=== PATIENT | male | born 1960 | race Caucasian/White ===

== ENCOUNTER 2017-06-21 10:03 | Inpatient (IN) | payer OTHER ==
--- NOTE | 2017-06-21 10:41 | EDM.PDOC ---
ED HPI GENERAL MEDICAL PROBLEM - General Chief Complaint: Fever Stated Complaint: CANCER Time Seen by Provider: 06/21/17 10:33 Source of Information: Reports: Patient History Limitations: Reports: No Limitations - History of Present Illness INITIAL COMMENTS - FREE TEXT/NARRATIVE: pt arrived with a history of spiking a fever last nite with shaking chills. He had a klebsella infection the end of May shortly after his bladder was removed. He has a history of ca of the bladder. He did have several bowel obstructions after he had his bladder removed none of which required surgery. Onset: Other (last nite he developed the shaking chills. ) Duration: Hour(s):, Getting Worse Location: Reports: Generalized Associated Symptoms: Reports: Diaphoresis, Fever/Chills, Weakness - Related Data Allergies Allergy/AdvReac Type Severity Reaction Status Date / Time erythromycin base Allergy Rash Verified 06/21/17 10:10 Home Meds: Home Meds Ibuprofen [Motrin] 200 mg PO Q6H PRN 06/21/17 [History] Past Medical History - Past Health History Medical/Surgical History: Denies Medical/Surgical History Gastrointestinal History: Reports: Bowel Obstruction Other Genitourinary History: bladder c/a with reconstructive surg. Oncologic (Cancer) History: Reports: Bladder - Infectious Disease History Infectious Disease History: Reports: Chicken Pox Other Infectious Disease History: recent klebsiella - Past Surgical History Male Surgical History: Reports: Prostatectomy Musculoskeletal Surgical History: Reports: Arthroscopic Knee Oncologic Surgical History: Reports: Other (See Below) Other Oncologic Surgeries/Procedures: bladder reconstruction Social & Family History - Tobacco Use Smoking Status *Q: Never Smoker - Recreational Drug Use Recreational Drug Use: No ED ROS GENERAL - Review of Systems Review Of Systems: See Below Constitutional: Reports: Fever, Chills HEENT: Reports: No Symptoms Respiratory: Reports: No Symptoms Cardiovascular: Reports: No Symptoms Endocrine: Reports: No Symptoms GI/Abdominal: Reports: No Symptoms : Reports: Other ( history of urinary tract infections. ) Musculoskeletal: Reports: No Symptoms Skin: Reports: No Symptoms Neurological: Reports: No Symptoms Psychiatric: Reports: No Symptoms ED EXAM, SEPSIS - Physical Exam Exam: See Below Text/Narrative:: Pt arrived with a fever and shaking chills. He has a history of a klebsella infection following the removal of his bladder. Exam Limited By: No Limitations General Appearance: Alert, Anxious, Mild Distress Ears: Normal TMs Nose: Normal Inspection Throat/Mouth: Normal Inspection Head: Atraumatic Neck: Normal Inspection Respiratory/Chest: No Respiratory Distress Cardiovascular: Regular Rate, Rhythm GI/Abdominal Exam: Soft, Other (mild supra pupic tenderness. ) (Male) Exam: Deferred Rectal (Males) Exam: Deferred Back: Normal Inspection Extremities: Normal Inspection Neurological: Alert, Oriented, Normal Gait Psychiatric: Normal Affect Course - Vital Signs Last Recorded V/S: Last Vital Signs Temp 37.4 C 06/22/17 07:13 Pulse 99 06/22/17 07:13 Resp 16 06/22/17 07:13 BP 118/60 06/22/17 07:13 Pulse Ox 95 06/22/17 07:13 - Orders/Labs/Meds Orders: Active Orders 24 hr Category Date Time Status Abdomen Pelvis w Cont [CT] Stat Exams 06/21/17 11:20 Taken Chest 1V Frontal [CR] Stat Exams 06/21/17 10:51 Taken CULTURE BLOOD [BC] Urgent Lab 06/21/17 10:35 Received CULTURE BLOOD [BC] Urgent Lab 06/21/17 10:40 Received CULTURE URINE [RM] Stat Lab 06/21/17 13:10 Results Blood Culture x2 Reflex Set [OM.PC] Urgent Oth 06/21/17 10:31 Ordered Medication Orders Acetaminophen (Tylenol) 650 mg PO Q4H PRN PRN Reason: Pain (Mild 1-3)/fever Last Admin: 06/21/17 21:48 Dose: 650 mg Admin: 06/21/17 14:57 Dose: 650 mg Docusate Sodium (Colace) 100 mg PO BID PRN PRN Reason: Constipation Enoxaparin Sodium (Lovenox) 40 mg SUBCUT Q24H [facility] Last Admin: 06/21/17 14:02 Dose: 40 mg Meropenem 1 gm/ Sodium (Chloride) 100 mls @ 200 mls/hr IV Q8H [facility] Last Admin: 06/22/17 05:22 Dose: 200 mls/hr Infusion: 06/21/17 22:11 Dose: 200 mls/hr Admin: 06/21/17 21:41 Dose: 200 mls/hr Infusion: 06/21/17 13:53 Dose: 200 mls/hr Admin: 06/21/17 13:23 Dose: 200 mls/hr Sodium Chloride (Normal Saline) 1,000 mls @ 125 mls/hr IV ASDIRECTED [facility] Last Admin: 06/21/17 21:49 Dose: 125 mls/hr Infusion: 06/21/17 21:24 Dose: 125 mls/hr Admin: 06/21/17 13:24 Dose: 125 mls/hr Vancomycin HCl 1.25 gm/ Sodium (Chloride) 250 mls @ 167 mls/hr IV Q12H [facility] Last Admin: 06/22/17 01:58 Dose: 167 mls/hr Ibuprofen (Motrin) 400 mg PO Q6H PRN PRN Reason: Pain/Fever Last Admin: 06/22/17 02:10 Dose: 400 mg Admin: 06/21/17 17:30 Dose: 400 mg Magnesium Hydroxide (Milk Of Magnesia) 30 ml PO Q12H PRN PRN Reason: Constipation Ondansetron HCl (Zofran) 4 mg IV Q4H PRN PRN Reason: Nausea/Vomiting Oxycodone HCl (Oxycodone) 5 mg PO Q4H PRN PRN Reason: Pain (moderate 4-6) Polyethylene Glycol (Miralax) 17 gm PO DAILY PRN PRN Reason: Constipation Sodium Chloride (Saline Flush) 10 ml FLUSH ASDIRECTED PRN PRN Reason: Keep Vein Open Labs: Laboratory Tests 06/21/17 06/21/17 06/21/17 Range/Units 10:35 10:35 10:35 WBC 11.2 H (4.5-11.0) K/uL RBC 3.44 L (4.30-5.90) M/uL Hgb 10.3 L (12.0-15.0) g/dL Hct 30.7 L (40.0-54.0) % MCV 89 (80-98) fL MCH 30 (27-31) pg MCHC 34 (32-36) % Plt Count 343 (150-400) K/uL Neut % (Auto) 85 H (36-66) % Lymph % (Auto) 8 L (24-44) % [place] % (Auto) 7 H (2-6) % Eos % (Auto) 0 L (2-4) % Baso % (Auto) 0 (0-1) % VBG pH (7.350-7.450) Sodium 132 L (140-148) mmol/L Potassium 3.4 L (3.6-5.2) mmol/L Chloride 101 (100-108) mmol/L Carbon Dioxide 17 L (21-32) mmol/L Anion Gap 17.4 H (5.0-14.0) mmol/L BUN 30 H (7-18) mg/dL Creatinine 1.3 (0.8-1.3) mg/dL Est Cr Clr Drug Dosing 70.47 mL/min Estimated GFR (MDRD) 57 L (>60) Glucose 126 H (74-106) mg/dL Lactic Acid (0.4-2.0) mmol/L Calcium 8.7 (8.5-10.1) mg/dL Total Bilirubin 0.3 (0.2-1.0) mg/dL AST 18 (15-37) U/L ALT 31 (12-78) U/L Alkaline Phosphatase 78 (46-116) U/L C-Reactive Protein 3.25 H (0.0-0.3) mg/dL Total Protein 8.3 H (6.4-8.2) g/dL Albumin 3.4 (3.4-5.0) g/dL Globulin 4.9 H (2.3-3.5) g/dL Albumin/Globulin Ratio 0.7 L (1.2-2.2) Urine Color Urine Appearance Urine pH (4.5-8.0) Ur Specific [place] (1.008-1.030) Urine Protein (NEGATIVE) mg/dL Urine Glucose (UA) (NEGATIVE) mg/dL Urine Ketones (NEGATIVE) mg/dL Urine Occult Blood (NEGATIVE) Urine Nitrite (NEGAITVE) Urine Bilirubin (NEGATIVE) Urine Urobilinogen (NORMAL) mg/dL Ur Leukocyte Esterase (NEGATIVE) Urine RBC (0-5) Urine WBC (0-5) Ur Epithelial Cells Amorphous Sediment Urine Bacteria Urine Mucus 06/21/17 06/21/17 06/21/17 Range/Units 10:35 10:52 12:25 WBC (4.5-11.0) K/uL RBC (4.30-5.90) M/uL Hgb (12.0-15.0) g/dL Hct (40.0-54.0) % MCV (80-98) fL MCH (27-31) pg MCHC (32-36) % Plt Count (150-400) K/uL Neut % (Auto) (36-66) % Lymph % (Auto) (24-44) % [place] % (Auto) (2-6) % Eos % (Auto) (2-4) % Baso % (Auto) (0-1) % VBG pH 7.426 (7.350-7.450) Sodium (140-148) mmol/L Potassium (3.6-5.2) mmol/L Chloride (100-108) mmol/L Carbon Dioxide (21-32) mmol/L Anion Gap (5.0-14.0) mmol/L BUN (7-18) mg/dL Creatinine (0.8-1.3) mg/dL Est Cr Clr Drug Dosing mL/min Estimated GFR (MDRD) (>60) Glucose (74-106) mg/dL Lactic Acid 1.3 (0.4-2.0) mmol/L Calcium (8.5-10.1) mg/dL Total Bilirubin (0.2-1.0) mg/dL AST (15-37) U/L ALT (12-78) U/L Alkaline Phosphatase (46-116) U/L C-Reactive Protein (0.0-0.3) mg/dL Total Protein (6.4-8.2) g/dL Albumin (3.4-5.0) g/dL Globulin (2.3-3.5) g/dL Albumin/Globulin Ratio (1.2-2.2) Urine Color Yellow Urine Appearance Cloudy Urine pH 6.0 (4.5-8.0) Ur Specific [place] 1.010 (1.008-1.030) Urine Protein Trace (NEGATIVE) mg/dL Urine Glucose (UA) Normal (NEGATIVE) mg/dL Urine Ketones Negative (NEGATIVE) mg/dL Urine Occult Blood Large (NEGATIVE) Urine Nitrite Positive H (NEGAITVE) Urine Bilirubin Negative (NEGATIVE) Urine Urobilinogen Normal (NORMAL) mg/dL Ur Leukocyte Esterase Large (NEGATIVE) Urine RBC 20-30 H (0-5) Urine WBC 10-20 H (0-5) Ur Epithelial Cells Not seen Amorphous Sediment Not seen Urine Bacteria Many Urine Mucus Not seen Meds: Medications Generic Name Dose Route Start Last Admin Trade Name Freq PRN Reason Stop Dose Admin Acetaminophen 650 mg 06/21/17 13:05 06/21/17 21:48 Tylenol PO 650 mg Q4H PRN Administration Pain (Mild 1-3)/fever Docusate Sodium 100 mg 06/21/17 13:05 Colace PO BID PRN Constipation Enoxaparin Sodium 40 mg 06/21/17 14:00 06/21/17 14:02 Lovenox SUBCUT 40 mg Q24H [facility]TE Administration Meropenem 1 gm/ Sodium 100 mls @ 200 mls/hr 06/21/17 13:30 06/22/17 05:22 Chloride IV 200 mls/hr Q8H [facility]TE Administration Sodium Chloride 1,000 mls @ 125 mls/hr 06/21/17 13:05 06/21/17 21:49 Normal Saline IV 125 mls/hr ASDIRECTED Y[facility]TE Administration Vancomycin HCl 1.25 gm/ Sodium 250 mls @ 167 mls/hr 06/22/17 02:00 06/22/17 01:58 Chloride IV 167 mls/hr Q12H [facility]TE Administration Ibuprofen 400 mg 06/21/17 17:09 06/22/17 02:10 Motrin PO 400 mg Q6H PRN Administration Pain/Fever Magnesium Hydroxide 30 ml 06/21/17 13:05 Milk Of Magnesia PO Q12H PRN Constipation Ondansetron HCl 4 mg 06/21/17 13:05 Zofran IV Q4H PRN Nausea/Vomiting Oxycodone HCl 5 mg 06/21/17 13:05 Oxycodone PO Q4H PRN Pain (moderate 4-6) Polyethylene Glycol 17 gm 06/21/17 13:05 Miralax PO DAILY PRN Constipation Sodium Chloride 10 ml 06/21/17 13:05 Saline Flush FLUSH ASDIRECTED PRN Keep Vein Open Discontinued Medications Generic Name Dose Route Start Last Admin Trade Name Freq PRN Reason Stop Dose Admin Acetaminophen 650 mg 06/21/17 11:11 06/21/17 11:18 Tylenol PO 06/21/17 11:12 650 mg NOW ONE Administration Sodium Chloride 1,000 mls @ 999 mls/hr 06/21/17 11:15 06/21/17 11:20 Normal Saline IV 999 mls/hr ASDIRECTED [facility]TE Administration Sodium Chloride 77 mls @ 3 mls/sec 06/21/17 11:33 06/21/17 11:48 Normal Saline IV 06/21/17 11:34 3 mls/sec ONETIME ONE Administration Vancomycin HCl 1.6 gm/ Sodium 250 mls @ 167 mls/hr 06/21/17 14:00 06/21/17 14 :03 Chloride IV 06/21/17 15:29 167 mls/hr ONETIME ONE Administration Iopamidol 123 ml 06/21/17 11:45 06/21/17 11:48 Isovue-300 (61%) IV 150 ml . DIRECTED [facility]TE Administration Sodium Chloride 10 ml 06/21/17 11:33 06/21/17 11:48 Saline Flush FLUSH 10 ml ONETIME PRN Administration PER RADIOLOGY PROTOCOL Vancomycin HCl 1 gm 06/21/17 13:05 Vancomycin IV 06/21/17 15:00 .PHARMACY TO DOSE YVETTE - Re-Assessments/Exams Free Text/Narrative Re-Assessment/Exam: 06/21/17 11:39 pt has a mild wbc at 11,000. He has a co2 of 17. He has a urine with a positive nitrite Blood cultures are pending. . Departure - Departure Time of Disposition: 13:20 Disposition: Admitted As Inpatient 67 Condition: Fair Clinical Impression: Sepsis, UTI (urinary tract infection), Cancer of bladder - Discharge Information - My Orders Last 24 Hours: My Active Orders 06/21/17 10:31 Blood Culture x2 Reflex Set [OM.PC] Urgent 06/21/17 10:35 CULTURE BLOOD [BC] Urgent 06/21/17 10:40 CULTURE BLOOD [BC] Urgent 06/21/17 10:51 Chest 1V Frontal [CR] Stat 06/21/17 11:20 Abdomen Pelvis w Cont [CT] Stat 06/21/17 13:10 CULTURE URINE [RM] Stat - Assessment/Plan Last 24 Hours: My Active Orders 06/21/17 10:31 Blood Culture x2 Reflex Set [OM.PC] Urgent 06/21/17 10:35 CULTURE BLOOD [BC] Urgent 06/21/17 10:40 CULTURE BLOOD [BC] Urgent 06/21/17 10:51 Chest 1V Frontal [CR] Stat 06/21/17 11:20 Abdomen Pelvis w Cont [CT] Stat 06/21/17 13:10 CULTURE URINE [RM] Stat
[2017-06-21] MEDS ORDERED: Acetaminophen 325 MG Tab PO ONE (11:11)
[2017-06-21] MEDS ORDERED: Sodium Chloride 0.9% 1,000 ML IV SCH (11:15)
[2017-06-21] MEDS ORDERED: Sodium Chloride 0.9% 10 ML Syringe FLUSH PRN ×2 (11:33→13:05)
[2017-06-21] MEDS ORDERED: Iopamidol 612 MG/ML 150 ML Bottle IV SCH (11:45)
--- NOTE | 2017-06-21 12:56 | PCM.HP ---
H&P History of Present Illness - General Date of Service: 06/21/17 Admit Problem/Dx: Source of Information: Patient, Family, Provider, RN Notes Reviewed History Limitations: Reports: No Limitations - History of Present Illness Initial Comments - Free Text/Narative: Mr. Bergman is a 56-year-old gentleman who is admitted through the emergency department with complicated urinary tract infection. He has a known history of bladder cancer, underwent chemotherapy at the [facility] in [place] followed by bladder resection. A new bladder was created from small intestine, postoperative course was complicated by bowel obstruction and then a urinary tract infection. Culture grew out resistant Klebsiella and he was treated for a period of 14 days with IV ertapenem. He discontinued the IV ertapenem and PICC line 11 days ago. He felt well until yesterday when he was noted some increase in weakness and then developed a temperature elevation of 103F last night. He had recurrent temperature elevation this morning and he presented to the emergency department for further evaluation. White blood cell count is modestly elevated 11,100, lactic acid is normal. Heart rate is borderline elevated but the report it's been elevated ever since he completed his course of chemotherapy , blood pressure is within desired range. - Related Data Allergies/Adverse Reactions: Allergies Allergy/AdvReac Type Severity Reaction Status Date / Time erythromycin base Allergy Rash Verified 06/21/17 10:10 Past Medical History - Past Health History Medical/Surgical History: Denies Medical/Surgical History Gastrointestinal History: Reports: Bowel Obstruction Other Genitourinary History: bladder c/a with reconstructive surg. Oncologic (Cancer) History: Reports: Bladder - Infectious Disease History Infectious Disease History: Reports: Chicken Pox Other Infectious Disease History: recent klebsiella - Past Surgical History Male Surgical History: Reports: Prostatectomy Musculoskeletal Surgical History: Reports: Arthroscopic Knee Oncologic Surgical History: Reports: Other (See Below) Other Oncologic Surgeries/Procedures: bladder reconstruction Social & Family History - Tobacco Use Smoking Status *Q: Never Smoker - Recreational Drug Use Recreational Drug Use: No H&P Review of Systems - Review of Systems: Review Of Systems: See Below General: Reports: Fever, Chills, Weakness HEENT: Reports: No Symptoms Pulmonary: Reports: No Symptoms Cardiovascular: Reports: No Symptoms Gastrointestinal: Reports: Decreased Appetite, Other (Mild suprapubic pain). Denies: Anorexia, Constipation, Diarrhea, Difficulty Swallowing, Distension, Hematemesis, Hematochezia, Melena, Nausea, Vomiting Genitourinary: Reports: No Symptoms Musculoskeletal: Reports: No Symptoms Skin: Reports: No Symptoms Psychiatric: Reports: No Symptoms Neurological: Reports: No Symptoms Hematologic/Lymphatic: Reports: No Symptoms Immunologic: Reports: No Symptoms Exam - Exam Exam: See Below - Vital Signs Vital Signs: Last Vital Signs Temp 101.5 F H 06/21/17 10:27 Pulse 78 06/21/17 10:27 Resp 14 06/21/17 10:27 BP 124/65 06/21/17 10:27 Pulse Ox 96 06/21/17 10:27 Weight: 180 lb - Exam Quality Assessment: DVT Prophylaxis General: Alert, Oriented, Cooperative, Mild Distress HEENT: Conjunctiva Clear, Hearing Intact, Normal Nasal Septum, Posterior Pharynx Clear, Pupils Equal. No: Mucosa Moist & [place] Neck: Supple, Trachea Midline, +2 Carotid Pulse wo Bruit Lungs: Clear to Auscultation, Normal Respiratory Effort Cardiovascular: Regular Rate, Regular Rhythm, Normal S1, Normal S2 GI/Abdominal Exam: Normal Bowel Sounds, Soft, No Organomegaly, No Distention, Tender. No: Distended, Guarding, Rigid, Rebound Back Exam: Normal Inspection, Full Range of Motion, NT Extremities: Normal Inspection, Normal Range of Motion, Non-Tender, No Pedal Edema Skin: Warm, Dry, Intact Neurological: Cranial Nerves Intact, Strength Equal Bilateral, Normal Speech, Normal Tone, Sensation Intact. No: Focal Deficit Neuro Extensive - Mental Status: Alert, Oriented x3, Normal Mood/Affect, Normal Cognition, Memory Intact - Patient Data Lab Results Last 24 hrs: Laboratory Results - last 24 hr 06/21/17 06/21/17 06/21/17 Range/Units 10:35 10:35 10:35 WBC 11.2 H (4.5-11.0) K/uL RBC 3.44 L (4.30-5.90) M/uL Hgb 10.3 L (12.0-15.0) g/dL Hct 30.7 L (40.0-54.0) % MCV 89 (80-98) fL MCH 30 (27-31) pg MCHC 34 (32-36) % Plt Count 343 (150-400) K/uL Neut % (Auto) 85 H (36-66) % Lymph % (Auto) 8 L (24-44) % [place] % (Auto) 7 H (2-6) % Eos % (Auto) 0 L (2-4) % Baso % (Auto) 0 (0-1) % VBG pH (7.350-7.450) Sodium 132 L (140-148) mmol/L Potassium 3.4 L (3.6-5.2) mmol/L Chloride 101 (100-108) mmol/L Carbon Dioxide 17 L (21-32) mmol/L Anion Gap 17.4 H (5.0-14.0) mmol/L BUN 30 H (7-18) mg/dL Creatinine 1.3 (0.8-1.3) mg/dL Est Cr Clr Drug Dosing 70.47 mL/min Estimated GFR (MDRD) 57 L (>60) Glucose 126 H (74-106) mg/dL Lactic Acid (0.4-2.0) mmol/L Calcium 8.7 (8.5-10.1) mg/dL Total Bilirubin 0.3 (0.2-1.0) mg/dL AST 18 (15-37) U/L ALT 31 (12-78) U/L Alkaline Phosphatase 78 (46-116) U/L C-Reactive Protein 3.25 H (0.0-0.3) mg/dL Total Protein 8.3 H (6.4-8.2) g/dL Albumin 3.4 (3.4-5.0) g/dL Globulin 4.9 H (2.3-3.5) g/dL Albumin/Globulin Ratio 0.7 L (1.2-2.2) Urine Color Urine Appearance Urine pH (4.5-8.0) Ur Specific [place] (1.008-1.030) Urine Protein (NEGATIVE) mg/dL Urine Glucose (UA) (NEGATIVE) mg/dL Urine Ketones (NEGATIVE) mg/dL Urine Occult Blood (NEGATIVE) Urine Nitrite (NEGAITVE) Urine Bilirubin (NEGATIVE) Urine Urobilinogen (NORMAL) mg/dL Ur Leukocyte Esterase (NEGATIVE) Urine RBC (0-5) Urine WBC (0-5) Ur Epithelial Cells Amorphous Sediment Urine Bacteria Urine Mucus 06/21/17 06/21/17 06/21/17 Range/Units 10:35 10:52 12:25 WBC (4.5-11.0) K/uL RBC (4.30-5.90) M/uL Hgb (12.0-15.0) g/dL Hct (40.0-54.0) % MCV (80-98) fL MCH (27-31) pg MCHC (32-36) % Plt Count (150-400) K/uL Neut % (Auto) (36-66) % Lymph % (Auto) (24-44) % [place] % (Auto) (2-6) % Eos % (Auto) (2-4) % Baso % (Auto) (0-1) % VBG pH 7.426 (7.350-7.450) Sodium (140-148) mmol/L Potassium (3.6-5.2) mmol/L Chloride (100-108) mmol/L Carbon Dioxide (21-32) mmol/L Anion Gap (5.0-14.0) mmol/L BUN (7-18) mg/dL Creatinine (0.8-1.3) mg/dL Est Cr Clr Drug Dosing mL/min Estimated GFR (MDRD) (>60) Glucose (74-106) mg/dL Lactic Acid 1.3 (0.4-2.0) mmol/L Calcium (8.5-10.1) mg/dL Total Bilirubin (0.2-1.0) mg/dL AST (15-37) U/L ALT (12-78) U/L Alkaline Phosphatase (46-116) U/L C-Reactive Protein (0.0-0.3) mg/dL Total Protein (6.4-8.2) g/dL Albumin (3.4-5.0) g/dL Globulin (2.3-3.5) g/dL Albumin/Globulin Ratio (1.2-2.2) Urine Color Yellow Urine Appearance Cloudy Urine pH 6.0 (4.5-8.0) Ur Specific [place] 1.010 (1.008-1.030) Urine Protein Trace (NEGATIVE) mg/dL Urine Glucose (UA) Normal (NEGATIVE) mg/dL Urine Ketones Negative (NEGATIVE) mg/dL Urine Occult Blood Large (NEGATIVE) Urine Nitrite Positive H (NEGAITVE) Urine Bilirubin Negative (NEGATIVE) Urine Urobilinogen Normal (NORMAL) mg/dL Ur Leukocyte Esterase Large (NEGATIVE) Urine RBC 20-30 H (0-5) Urine WBC 10-20 H (0-5) Ur Epithelial Cells Not seen Amorphous Sediment Not seen Urine Bacteria Many Urine Mucus Not seen Result Diagrams: 06/21/17 10:35 06/21/17 10:35 *Q Meaningful Use (ADM) - VTE *Q VTE Criteria *Q: - VTE Risk Assess *Q Each Risk Factor Represents 1 Point: Age 41 - 59 years, Sepsis, Less than 1 Month Total Score 1 Point Risk Factors: 2 Each Risk Factor Represents 2 Points: None Total Score 2 Point Risk Factors: 0 Each Risk Factor Represents 3 Points: Present Cancer or Chemotherapy Total Score 3 Point Risk Factors: 3 Each Risk Factor Represents 5 Points: None Total Score 5 Point Risk Factors: 0 Venous Thromboembolism Risk Factor Score *Q: 5 - Stroke *Q Stroke Criteria *Q: - AMI *Q AMI Criteria *Q: Problem List Initiated/Reviewed/Updated: Yes Orders Last 24hrs: Active Orders 24 hr Category Date Time Status Patient Status Manage Transfer [TRANSFER] Routine ADT 06/21/17 12:28 Ordered Abdomen Pelvis w Cont [CT] Stat Exams 06/21/17 11:20 Taken Chest 1V Frontal [CR] Stat Exams 06/21/17 10:51 Ordered CULTURE BLOOD [BC] Urgent Lab 06/21/17 10:35 Received CULTURE BLOOD [BC] Urgent Lab 06/21/17 10:40 Received CULTURE URINE [RM] Stat Lab 06/21/17 11:10 Uncollected Iopamidol [Isovue-300 (61%)] Med 06/21/17 11:45 Active 123 ml IV . DIRECTED Sodium Chloride 0.9% [Normal Saline] 1,000 ml Med 06/21/17 11:15 Active IV ASDIRECTED Sodium Chloride 0.9% [Saline Flush] Med 06/21/17 11:33 Active 10 ml FLUSH ONETIME PRN Blood Culture x2 Reflex Set [OM.PC] Urgent Oth 06/21/17 10:31 Ordered Resuscitation Status Routine Resus Stat 06/21/17 12:31 Ordered Medication Orders Sodium Chloride (Normal Saline) 1,000 mls @ 999 mls/hr IV ASDIRECTED YVETTE Last Admin: 06/21/17 11:20 Dose: 999 mls/hr Iopamidol (Isovue-300 (61%)) 123 ml IV . DIRECTED YVETTE Last Admin: 06/21/17 11:48 Dose: 150 ml Sodium Chloride (Saline Flush) 10 ml FLUSH ONETIME PRN PRN Reason: PER RADIOLOGY PROTOCOL Last Admin: 06/21/17 11:48 Dose: 10 ml Assessment/Plan Comment:: ASSESSMENT AND PLAN COMPLICATED URINARY TRACT INFECTION-history of bladder cancer, status post cystectomy with creation of a new bladder from small intestine. Postoperative course complicated by bowel obstruction and then urinary tract infection with resistant Klebsiella. He completed a course of IV antibiotic therapy with ertapenem 11 days ago in PICC line was removed at that time. I have reviewed current findings and situation with the infectious disease physician on-call at the [facility] in [place]. She has recommended that we start IV meropenem and vancomycin pending culture results. Certainly this would change depending on results of CT scan as well. There is no evidence of significant sepsis at the time of admission. -CT scan results pending -Blood and urine cultures pending -Chest x-ray pending -Empiric IV antibiotic therapy with vancomycin and meropenem, pending culture results BLADDER CANCER-status post chemotherapy and cystectomy, with creation of a new bladder from small intestine. MAINTENANCE ISSUES -DVT prophylaxis; Lovenox 40 mg subcutaneous daily -GI prophylaxis; not indicated -Galan catheter; not indicated -Nutrition; regular diet -Nicotine dependence; not required CODE STATUS-FULL CODE ADMISSION STATUS-patient will be admitted to inpatient status, expect at least a 2 night hospital stay for evaluation and management of problems as outlined above. At the time of this admission I do not reasonably expected evaluation and management of this problem will require more than a 96 hour hospital stay. DISPOSITION-anticipate discharge to home after the hospital stay. PRIMARY CARE PROVIDER-patient has received all of his recent care at the [facility] in [place]
[2017-06-21] MEDS ORDERED: Polyethylene Glycol 3350 Powder 17 GM Packet PO PRN (13:05)
[2017-06-21] MEDS ORDERED: Docusate Sodium 100 MG Cap PO PRN (13:05)
[2017-06-21] MEDS ORDERED: Magnesium Hydroxide 400 MG/5 ML Susp 30 ML Cup PO PRN (13:05)
[2017-06-21] MEDS ORDERED: Ondansetron 4 MG/2 ML SDV IV PRN (13:05)
[2017-06-21] MEDS ORDERED: Vancomycin 1 GM SDV IV SCH (13:05)
[2017-06-21] MEDS ORDERED: oxyCODONE 5 MG Tab PO PRN (13:05)
[2017-06-21] MEDS: Meropenem 1 GM in Sodium Chloride 0.9% 100 ML IV SCH ×2 (13:23→21:41)
[2017-06-21] MEDS: Sodium Chloride 0.9% 1,000 ML IV SCH ×2 (13:24→21:49)
[2017-06-21] MEDS ORDERED: Vancomycin 1.6 GM in Sodium Chloride 0.9% 250 ML IV ONE (14:00)
[2017-06-21] MEDS: Enoxaparin 40 MG/0.4 ML Syringe SUBCUT SCH (14:02)
[2017-06-21] MEDS: Acetaminophen 325 MG Tab PO PRN ×2 (14:57→21:48)
[2017-06-21] MEDS: Ibuprofen 400 MG Tab PO PRN (17:30)
[2017-06-22] MEDS: Ibuprofen 400 MG Tab PO PRN ×3 (02:10→22:17)
[2017-06-22] MEDS: Meropenem 1 GM in Sodium Chloride 0.9% 100 ML IV SCH ×3 (05:22→22:10)
[2017-06-22] MEDS: Acetaminophen 325 MG Tab PO PRN ×3 (07:41→19:30)
[2017-06-22] MEDS: Sodium Chloride 0.9% 1,000 ML IV SCH (07:44)
[2017-06-22] MEDS ORDERED: Potassium Chloride 40 MEQ in Premix Bag 1 BAG IV ONE (08:11)
[2017-06-22] MEDS ORDERED: Potassium Chloride 20 MEQ Tab.ER PO ONE (09:00)
[2017-06-22] MEDS: Magnesium Oxide 400 MG Tab PO SCH ×2 (09:03→22:09)
[2017-06-22] MEDS: Magnesium Sulfate/Water 2 GM in Premix Bag 1 BAG IV SCH ×3 (09:03→22:10)
[2017-06-22] MEDS: Potassium Chloride 20 MEQ, Lidocaine 1% 2 ML in Sodium Chloride 0.9% 100 ML IV SCH ×2 (11:06→16:00)
--- NOTE | 2017-06-22 15:15 | PCM.PN ---
- General Info Date of Service: 06/22/17 Functional Status: Reports: Pain Controlled, Tolerating Diet, Urinating - Review of Systems General: Reports: Fever, Weakness, Chills Pulmonary: Reports: No Symptoms Cardiovascular: Reports: No Symptoms Gastrointestinal: Reports: No Symptoms Systems Review Comment:: Mr. Bergman experienced ongoing temperature elevations last night and during the gate watch hours, since then he has been afebrile. Vital signs have been stable with no evidence of active sepsis. Urine culture showing growth, although no Gram stain results available, final ID and sensitivities pending. Blood cultures showing no growth after [address] scan obtained yesterday did show evidence of fluid collections within the pelvis as well as evidence of left pyelonephritis. We have been able to obtain the most recent CT scan from [place] and this is been compared with the CT scan done here yesterday. Areas of fluid collection in the pelvis are related to the neobladder as well as 2 areas of lymphocele fluid collection. The area of pyelonephritis in the left kidney appears to be slightly smaller than on the last CT scan. I did review these results again with the infectious disease specialist from the [facility] in [place], she is recommended that we continue current antibiotic therapy pending culture results. She also recommended proceeding with ultrasound of the kidneys to rule out any areas of obstruction. - Patient Data Vitals - Most Recent: Last Vital Signs Temp 99.9 F 06/22/17 14:24 Pulse 102 H 06/22/17 14:24 Resp 16 06/22/17 14:24 BP 132/69 06/22/17 14:24 Pulse Ox 97 06/22/17 14:24 Weight - Most Recent: 190 lb 1.6 oz I&O - Last 24 Hours: Intake & Output 06/22/17 06/22/17 06/22/17 06:59 14:59 22:59 Intake Total 1582 50 Balance 1582 50 Lab Results Last 24 Hours: Laboratory Results - last 24 hr 06/22/17 06/22/17 Range/Units 05:40 05:40 WBC 10.6 (4.5-11.0) K/uL RBC 2.90 L (4.30-5.90) M/uL Hgb 8.7 L (12.0-15.0) g/dL Hct 25.9 L (40.0-54.0) % MCV 89 (80-98) fL MCH 30 (27-31) pg MCHC 34 (32-36) % Plt Count 237 (150-400) K/uL Neut % (Auto) 83 H (36-66) % Lymph % (Auto) 7 L (24-44) % [place] % (Auto) 10 H (2-6) % Eos % (Auto) 0 L (2-4) % Baso % (Auto) 0 (0-1) % Sodium 132 L (140-148) mmol/L Potassium 3.0 L (3.6-5.2) mmol/L Chloride 102 (100-108) mmol/L Carbon Dioxide 16 L (21-32) mmol/L Anion Gap 17.0 H (5.0-14.0) mmol/L BUN 19 H (7-18) mg/dL Creatinine 1.2 (0.8-1.3) mg/dL Est Cr Clr Drug Dosing 76.34 mL/min Estimated GFR (MDRD) > 60 (>60) Glucose 131 H (74-106) mg/dL Calcium 7.7 L (8.5-10.1) mg/dL Magnesium 0.8 L (1.8-2.4) mg/dL Joao Results Last 24 Hours: Microbiology 06/21/17 13:10 Urine Culture - Preliminary Urine, Clean Catch Med Orders - Current: Current Medications Acetaminophen (Tylenol) 650 mg PO Q4H PRN PRN Reason: Pain (Mild 1-3)/fever Last Admin: 06/22/17 13:00 Dose: 650 mg Docusate Sodium (Colace) 100 mg PO BID PRN PRN Reason: Constipation Enoxaparin Sodium (Lovenox) 40 mg SUBCUT Q24H [facility] Last Admin: 06/21/17 14:02 Dose: 40 mg Meropenem 1 gm/ Sodium (Chloride) 100 mls @ 200 mls/hr IV Q8H [facility] Last Admin: 06/22/17 13:35 Dose: 200 mls/hr Vancomycin HCl 1.25 gm/ Sodium (Chloride) 250 mls @ 167 mls/hr IV Q12H [facility] Last Admin: 06/22/17 14:31 Dose: 167 mls/hr Magnesium Sulfate 2 gm/ Premix 50 mls @ 25 mls/hr IV Q6H [facility] Stop: 06/23/17 04:59 Last Admin: 06/22/17 09:03 Dose: 25 mls/hr Ibuprofen (Motrin) 400 mg PO Q6H PRN PRN Reason: Pain/Fever Last Admin: 06/22/17 13:43 Dose: 400 mg Magnesium Hydroxide (Milk Of Magnesia) 30 ml PO Q12H PRN PRN Reason: Constipation Magnesium Oxide (Magnesium Oxide) 400 mg PO BID [facility] Last Admin: 06/22/17 09:03 Dose: 400 mg Ondansetron HCl (Zofran) 4 mg IV Q4H PRN PRN Reason: Nausea/Vomiting Oxycodone HCl (Oxycodone) 5 mg PO Q4H PRN PRN Reason: Pain (moderate 4-6) Polyethylene Glycol (Miralax) 17 gm PO DAILY PRN PRN Reason: Constipation Sodium Chloride (Saline Flush) 10 ml FLUSH ASDIRECTED PRN PRN Reason: Keep Vein Open Discontinued Medications Acetaminophen (Tylenol) 650 mg PO NOW ONE Stop: 06/21/17 11:12 Last Admin: 06/21/17 11:18 Dose: 650 mg Sodium Chloride (Normal Saline) 1,000 mls @ 999 mls/hr IV ASDIRECTED [facility] Last Admin: 06/21/17 11:20 Dose: 999 mls/hr Sodium Chloride (Normal Saline) 77 mls @ 3 mls/sec IV ONETIME ONE Stop: 06/21/17 11:34 Last Admin: 06/21/17 11:48 Dose: 3 mls/sec Sodium Chloride (Normal Saline) 1,000 mls @ 125 mls/hr IV ASDIRECTED [facility] Last Admin: 06/22/17 07:44 Dose: 125 mls/hr Vancomycin HCl 1.6 gm/ Sodium (Chloride) 250 mls @ 167 mls/hr IV ONETIME ONE Stop: 06/21/17 15:29 Last Admin: 06/21/17 14:03 Dose: 167 mls/hr Potassium Chloride 20 meq/Lidocaine HCl 2 ml/ Sodium Chloride 112 mls @ 56 mls/ hr IV Q2H [facility] Stop: 06/22/17 14:59 Last Admin: 06/22/17 11:06 Dose: 56 mls/hr Iopamidol (Isovue-300 (61%)) 123 ml IV . DIRECTED [facility] Last Admin: 06/21/17 11:48 Dose: 150 ml Potassium Chloride (Klor-Con M20) 40 meq PO ONETIME ONE Stop: 06/22/17 09:01 Last Admin: 06/22/17 09:03 Dose: 40 meq Sodium Chloride (Saline Flush) 10 ml FLUSH ONETIME PRN PRN Reason: PER RADIOLOGY PROTOCOL Last Admin: 06/21/17 11:48 Dose: 10 ml Vancomycin HCl (Vancomycin) 1 gm IV .PHARMACY TO DOSE YVETTE Stop: 06/21/17 15:00 - Exam Quality Assessment: DVT Prophylaxis General: Alert, Oriented, Cooperative, Mild Distress Lungs: Clear to Auscultation, Normal Respiratory Effort Cardiovascular: Regular Rate, Regular Rhythm, No Murmurs GI/Abdominal Exam: Normal Bowel Sounds, Soft, Non-Tender, No Distention Extremities: Normal Inspection, No Pedal Edema Skin: Warm, Dry, Intact - Problem List Review Problem List Initiated/Reviewed/Updated: Yes - My Orders Last 24 Hours: My Active Orders 06/21/17 17:09 Ibuprofen [Motrin] 400 mg PO Q6H PRN 06/22/17 02:00 Vancomycin 1.25 gm Sodium Chloride 0.9% [Normal Saline] 250 ml IV Q12H 06/22/17 09:00 Magnesium Oxide 400 mg PO BID Magnesium Sulfate/Water [Magnesium Sulfate 2 GM in Water 50 ML] 2 gm Premix Bag 1 bag IV Q6H 06/22/17 15:08 Convert IV to Saline Lock [OM.PC] Routine 06/23/17 05:00 BASIC METABOLIC PANEL,BMP [CHEM] Timed CBC WITH AUTO DIFF [HEME] Timed MAGNESIUM [CHEM] Timed - Plan Plan:: ASSESSMENT AND PLAN COMPLICATED URINARY TRACT INFECTION-history of bladder cancer, status post cystectomy with creation of a new bladder from small intestine. Postoperative course complicated by bowel obstruction and then urinary tract infection with resistant Klebsiella. He completed a 14 day course of IV antibiotic therapy with ertapenem 11 days ago, PICC line was removed at that time. Comparison of our CT scan with CT from [place] shows areas of fluid collection in the pelvis are lymphoceles with no evidence of abscess. Area of pyelonephritis in the left kidney is slightly smaller in size when compared to previous CT scan. Urine culture is showing growth, final ID and sensitivities pending. Blood culture showing no growth after 24 hours. -Blood and urine cultures pending -Empiric IV antibiotic therapy with vancomycin and meropenem, pending culture results -Ultrasound to rule out obstruction BLADDER CANCER-status post chemotherapy and cystectomy, with creation of a new bladder from small intestine. MAINTENANCE ISSUES -DVT prophylaxis; Lovenox 40 mg subcutaneous daily -GI prophylaxis; not indicated -Galan catheter; not indicated -Nutrition; regular diet -Nicotine dependence; not required CODE STATUS-FULL CODE ADMISSION STATUS-patient will be admitted to inpatient status, expect at least a 2 night hospital stay for evaluation and management of problems as outlined above. At the time of this admission I do not reasonably expected evaluation and management of this problem will require more than a 96 hour hospital stay. DISPOSITION-anticipate discharge to home after the hospital stay. PRIMARY CARE PROVIDER-patient has received all of his recent care at the [facility] in [place]
[2017-06-22] MEDS: Enoxaparin 40 MG/0.4 ML Syringe SUBCUT SCH (16:02)
[2017-06-22] MEDS: Lactobacillus Rhamnosus GG (Probiotic) Cap PO SCH (22:17)
[2017-06-23] MEDS: Acetaminophen 325 MG Tab PO PRN ×2 (02:11→11:36)
[2017-06-23] MEDS: Magnesium Sulfate/Water 2 GM in Premix Bag 1 BAG IV SCH (03:54)
[2017-06-23] MEDS: Meropenem 1 GM in Sodium Chloride 0.9% 100 ML IV SCH (05:32)
[2017-06-23] MEDS ORDERED: Potassium Chloride 20 MEQ Tab.ER PO ONE (09:45)
[2017-06-23] MEDS: Magnesium Oxide 400 MG Tab PO SCH (09:53)
[2017-06-23] MEDS: Lactobacillus Rhamnosus GG (Probiotic) Cap PO SCH (11:37)
--- NOTE | 2017-06-23 11:58 | CR ---
Heart size within normal limits. No focal consolidation within the right hemithorax. Linear density l eft midlung zone may reflect atelectasis or scarring.
[2017-06-23] MEDS ORDERED: Mineral Oil/Petrolatum/Phenylephrine/Shark Liver Oil Oint 57 GM Tube RECTAL PRN (12:03)
[2017-06-23 14:40] VITALS: BP 139/83
[2017-06-23] MEDS: Ibuprofen 400 MG Tab PO PRN (14:56)
[2017-06-23] MEDS ORDERED: Ertapenem 1 GM in Sodium Chloride 0.9% 100 ML IV SCH (15:00)
--- NOTE | 2017-06-23 15:10 | US ---
Renal ultrasound. Findings: Right kidney 12.3 cm. No hydronephrosis. No evidence for mass. Left kidney 11.9 cm. No hydr onephrosis. There is 11 x 10 mm superiorly located vague density without vascularity. there are images of the neobladder with septations about it posteriorly which may be resultant from p ostsurgical change only correlate for infection and recommend follow-up to exclude any evidence for n eoplasm. Post void residual 246 cc. Impression: 1. Vague hypoechoic density within the left kidney. This is in a similar position compared to recent CT and is indeterminate. Focal pyelonephritis could have this appearance. Recommend short-term ultras ound or CT follow-up to exclude a neoplasm.
--- NOTE | 2017-06-23 15:16 | PCM.DCSUM1 ---
Discharge Summary - Hospital Course Brief History: 56-year-old male with bladder cancer and recent formation of a david-bladder complicated postoperatively by a bowel obstruction and complicated urinary tract infection with a resistant Klebsiella who presented with fever and was admitted for management of a recurrent complicated urinary tract infection. - Discharge Data Discharge Date: 06/23/17 Discharge Disposition: Home, [facility] 06 Condition: Good - Discharge Diagnosis/Problem(s) (1) Complicated UTI (urinary tract infection) SNOMED Code(s): 44467898 ICD Code: N39.0 - URINARY TRACT INFECTION, SITE NOT SPECIFIED Status: Acute Current Visit: Yes (2) Cancer of bladder SNOMED Code(s): 382667544 ICD Code: C67.9 - MALIGNANT NEOPLASM OF BLADDER, UNSPECIFIED Status: Chronic Current Visit: No Qualifiers: Bladder location: unspecified site Qualified Code(s): C67.9 - Malignant neoplasm of bladder, unspecified - Patient Summary/Data Labs Pending at D/C: final results of blood cultures which are negative at the time of discharge Hospital Course: Jonathan presented to the emergency room with fever of 103. Workup in the emergency room was suggestive of a complicated urinary tract infection with a recent history of a david-bladder formation after bladder resection for bladder cancer. His postop course had been complicated by a Klebsiella urinary tract infection and he had recently completed a 14 day course of IV ertapenem. Onset of symptoms was about 10 days after his antibiotics were complete. At the time of admission the [facility] was contacted for recommendations regarding antibiotic therapy. They did recommend. Broad-spectrum antibiotic coverage with his recent hospitalization and resistant Klebsiella infection. Meropenem and vancomycin were initiated. a CT scan of the abdomen and pelvis revealed 2 fluid collections in the lower abdomen that are likely lymphoceles and/or similar in size compared to his previous CT scan. There is also some evidence for left- sided pyelonephritis and this again appeared very similar to the CT scan obtained approximately 3 weeks earlier at the [facility]. There is no definitive evidence for abscess formation. Over the next 48 hours his fever curve improved and he has been afebrile for more than 24 hours. Clinically he is feeling much better with improvement in his strength and appetite. He does not have significant abdominal pain at this time. On the day of discharge his urine culture returned growing an ESBL Klebsiella. This appears to be the same organism that he had difficulty with following his surgical procedure. I did again discuss the case with the infectious disease folks at the [facility]. They recommended continuing the ertapenem based on sensitivities and ease of administration. At the time of discharge the plan is for him to complete 2 weeks of antibiotics and he will have repeat imaging prior to completion of the 2 weeks of antibiotics. he will be receiving his ertapenem daily at approximately 3 PM through our infusion center during the weekdays and emergency room over the weekend before he returns home. He will be receiving his IV antibiotics through a home health agency after he returns home. - Patient Instructions Diet: Regular Diet as Tolerated Activity: As Tolerated Driving: May Drive Today Showering/Bathing: May Shower Notify Provider of: Fever, Increased Pain, Nausea and/or Vomiting Other/Special Instructions: 1. You were in the hospital for management of a complicated urinary tract infection caused by Klebsiella pneumoniae. This particular bacteria was quite resistant to many antibiotics. after discussion with the infectious disease specialist at the [facility] we have elected to utilize ertapenem (Invanz) administered through the PICC line every 24 hours for the next 12 days. They will reassess your status prior to completion of 2 weeks of antibiotics and consider additional treatment if indicated. We will be administering the antibiotic through our nurse care manager center at 3 PM on weekdays and in the emergency room on weekends while you are in the [place] area. 2. Because of the prolonged course of antibiotics I do recommend that you continue to consume [place] yogurt as you have done recently. You could also consider taking a probiotic capsule twice daily while you're on antibiotics. Acidophilus and/or Lactobacillus are good choices for the probiotic capsules which are available at any of the local pharmacies. 3. You can alternate acetaminophen 650 mg and ibuprofen 600 mg every 4-6 hours as needed for mild pain or fever. 4. for the hemorrhoid which appears to be healing well I recommend a sitz bath 3 times a day and you can use Tucks pads and Preparation H as needed for discomfort. 5. The most common side effect from the ertapenem is a rash which often startson the trunk of the body and then spreads outward from there. Please be alert for progressive itching and redness that would raise concern for an allergic reaction. 6. Please seek medical attention if you develop fever greater than 101, shaking chills, severe abdominal pain or severe diarrhea. - Discharge Plan Prescriptions/Med Rec: Ertapenem [INVanz] 1 gm IV Q24H #12 vial Home Medications: Home Meds Ibuprofen [Motrin] 200 mg PO Q6H PRN 06/21/17 [History] Ertapenem [INVanz] 1 gm IV Q24H #12 vial 06/23/17 [Rx] Patient Handouts: Urinary Tract Infection, Adult, Ertapenem injection Referrals: PCP,None [Primary Care Provider] - (follow-up with the [facility] infectious disease team prior to completion of your 2 weeks of antibiotics. They will be contacting you to set up this appointment.) - Discharge Summary/Plan Comment DC Time >30 min.: Yes (40 - setting up home abx ) - Patient Data Vitals - Most Recent: Last Vital Signs Temp 37.4 C 06/23/17 14:56 Pulse 96 06/23/17 14:39 Resp 18 06/23/17 14:39 BP 139/83 06/23/17 14:39 Pulse Ox 98 06/23/17 14:39 Weight - Most Recent: 86.228 kg I&O - Last 24 hours: Intake & Output 06/23/17 06/23/17 06/23/17 06:59 14:59 22:59 Intake Total 800 240 Balance 800 240 Lab Results - Last 24 hrs: Laboratory Results - last 24 hr 06/23/17 06/23/17 Range/Units 05:38 05:38 WBC 5.8 (4.5-11.0) K/uL RBC 2.75 L (4.30-5.90) M/uL Hgb 8.3 L (12.0-15.0) g/dL Hct 24.7 L (40.0-54.0) % MCV 90 (80-98) fL MCH 30 (27-31) pg MCHC 34 (32-36) % Plt Count 242 (150-400) K/uL Neut % (Auto) 76 H (36-66) % Lymph % (Auto) 14 L (24-44) % [place] % (Auto) 10 H (2-6) % Eos % (Auto) 1 L (2-4) % Baso % (Auto) 0 (0-1) % Sodium 138 L (140-148) mmol/L Potassium 3.5 L (3.6-5.2) mmol/L Chloride 109 H (100-108) mmol/L Carbon Dioxide 20 L (21-32) mmol/L Anion Gap 12.5 (5.0-14.0) mmol/L BUN 14 (7-18) mg/dL Creatinine 1.0 (0.8-1.3) mg/dL Est Cr Clr Drug Dosing 91.61 mL/min Estimated GFR (MDRD) > 60 (>60) Glucose 115 H (74-106) mg/dL Calcium 8.0 L (8.5-10.1) mg/dL Magnesium 2.3 (1.8-2.4) mg/dL STANISLAV Results - Last 24 hrs: Microbiology 06/21/17 13:10 Urine Culture - Final Urine, Clean Catch (Esbl) Klebsiella Pneumonia Med Orders - Current: Current Medications Acetaminophen (Tylenol) 650 mg PO Q4H PRN PRN Reason: Pain (Mild 1-3)/fever Last Admin: 06/23/17 11:36 Dose: 650 mg Docusate Sodium (Colace) 100 mg PO BID PRN PRN Reason: Constipation Enoxaparin Sodium (Lovenox) 40 mg SUBCUT Q24H [facility] Last Admin: 06/22/17 16:02 Dose: 40 mg Ertapenem 1 gm/ Sodium (Chloride) 100 mls @ 200 mls/hr IV Q24H [facility] Ibuprofen (Motrin) 400 mg PO Q6H PRN PRN Reason: Pain/Fever Last Admin: 06/23/17 14:56 Dose: 400 mg Lactobacillus Rhamnosus (Culturelle) 2 cap PO BID [facility] Last Admin: 06/23/17 11:37 Dose: 2 cap Magnesium Hydroxide (Milk Of Magnesia) 30 ml PO Q12H PRN PRN Reason: Constipation Magnesium Oxide (Magnesium Oxide) 400 mg PO BID [facility] Last Admin: 06/23/17 09:53 Dose: 400 mg Ondansetron HCl (Zofran) 4 mg IV Q4H PRN PRN Reason: Nausea/Vomiting Oxycodone HCl (Oxycodone) 5 mg PO Q4H PRN PRN Reason: Pain (moderate 4-6) Phenyleph/Shark Oil/Min Oil/Petrol (Preparation H Oint) 0 gm RECTAL Q2H PRN PRN Reason: rectal pain Polyethylene Glycol (Miralax) 17 gm PO DAILY PRN PRN Reason: Constipation Sodium Chloride (Saline Flush) 10 ml FLUSH ASDIRECTED PRN PRN Reason: Keep Vein Open Discontinued Medications Acetaminophen (Tylenol) 650 mg PO NOW ONE Stop: 06/21/17 11:12 Last Admin: 06/21/17 11:18 Dose: 650 mg Sodium Chloride (Normal Saline) 1,000 mls @ 999 mls/hr IV ASDIRECTED [facility] Last Admin: 06/21/17 11:20 Dose: 999 mls/hr Sodium Chloride (Normal Saline) 77 mls @ 3 mls/sec IV ONETIME ONE Stop: 06/21/17 11:34 Last Admin: 06/21/17 11:48 Dose: 3 mls/sec Meropenem 1 gm/ Sodium (Chloride) 100 mls @ 200 mls/hr IV Q8H [facility] Last Admin: 06/23/17 05:32 Dose: 200 mls/hr Sodium Chloride (Normal Saline) 1,000 mls @ 125 mls/hr IV ASDIRECTED [facility] Last Admin: 06/22/17 07:44 Dose: 125 mls/hr Vancomycin HCl 1.6 gm/ Sodium (Chloride) 250 mls @ 167 mls/hr IV ONETIME ONE Stop: 06/21/17 15:29 Last Admin: 06/21/17 14:03 Dose: 167 mls/hr Vancomycin HCl 1.25 gm/ Sodium (Chloride) 250 mls @ 167 mls/hr IV Q12H [facility] Last Admin: 06/23/17 02:10 Dose: 167 mls/hr Magnesium Sulfate 2 gm/ Premix 50 mls @ 25 mls/hr IV Q6H [facility] Stop: 06/23/17 04:59 Last Admin: 06/23/17 03:54 Dose: 25 mls/hr Potassium Chloride 20 meq/Lidocaine HCl 2 ml/ Sodium Chloride 112 mls @ 56 mls/ hr IV Q2H [facility] Stop: 06/22/17 14:59 Last Admin: 06/22/17 16:00 Dose: 56 mls/hr Iopamidol (Isovue-300 (61%)) 123 ml IV . DIRECTED [facility] Last Admin: 06/21/17 11:48 Dose: 150 ml Potassium Chloride (Klor-Con M20) 40 meq PO ONETIME ONE Stop: 06/22/17 09:01 Last Admin: 06/22/17 09:03 Dose: 40 meq Potassium Chloride (Klor-Con M20) 40 meq PO ONETIME ONE Stop: 06/23/17 09:46 Last Admin: 06/23/17 11:37 Dose: 40 meq Sodium Chloride (Saline Flush) 10 ml FLUSH ONETIME PRN PRN Reason: PER RADIOLOGY PROTOCOL Last Admin: 06/21/17 11:48 Dose: 10 ml Vancomycin HCl (Vancomycin) 1 gm IV .PHARMACY TO DOSE YVETTE Stop: 06/21/17 15:00 *Q Meaningful Use (DIS) - VTE *Q VTE Criteria *Q: - Stroke *Q Stroke Criteria *Q: - AMI *Q AMI Criteria *Q:
[2017-06-23] MEDS: Enoxaparin 40 MG/0.4 ML Syringe SUBCUT SCH (15:19)
== END 2017-06-23 17:07 | disposition home health service (06) | DRG 690 ==
LOC: JP.ED 10:03 → JP.2SS 12:28
PROVIDERS: ADMIT Hospitalist; ATTEND Internal Medicine
PROC: 05HY33Z Insertion of Infusion Device into Upper Vein, Percutaneous Approach (ICD-10-PCS; principal; 2017-06-23)
DX: N39.0 Urinary tract infection, site not specified (principal); B96.1 Klebsiella pneumoniae [K. pneumoniae] as the cause of diseases classified elsewhere; Z16.20 Resistance to unspecified antibiotic; N12 Tubulo-interstitial nephritis, not specified as acute or chronic; Z79.2 Long term (current) use of antibiotics; Z85.51 Personal history of malignant neoplasm of bladder; Z92.21 Personal history of antineoplastic chemotherapy; Z90.6 Acquired absence of other parts of urinary tract; Z90.79 Acquired absence of other genital organ(s); Z87.440 Personal history of urinary (tract) infections; K64.9 Unspecified hemorrhoids; Z88.1 Allergy status to other antibiotic agents
CPT/HCPCS: 36415; 71010; 71010-26; 74177; 76770; 76770-26; 80048; 80053; 81001; 82800; 83605; 83735; 85025; 86140; 87040; 87086; 87088; 87186; 96361; 96374; 99284-25; A9270-GY; J1335; J1650; J2185; J3370; J3475; J3480; J7030; J7040; J7050